=== PATIENT | male | born 1950 ===

== ENCOUNTER 2018-10-26 14:56 | Inpatient (IN) | payer MEDICARE, OTHER ==
[~2018-10-26] VITALS: Ht 177.8 cm; Wt 117.6 kg
[2018-10-26 16:15] VITALS: BP 161/70
[2018-10-26] MEDS ORDERED: mag hydrox/Alum hydrox/simeth 30ml oral suspension PO PRN (17:00)
[2018-10-26] MEDS ORDERED: ondansetron/PF 4mg/2ml inj IV PRN ×2 (17:00→17:10)
[2018-10-26] MEDS ORDERED: magnesium hydroxide 30ml (MOM) UD suspension PO PRN (17:00)
[2018-10-26] MEDS ORDERED: acetaminophen 325mg tablet PO PRN (17:00)
[2018-10-26] MEDS ORDERED: HYDROcodone/acetaminophen 5mg/325mg tablet PO PRN (17:10)
[2018-10-26] MEDS ORDERED: furosemide 40mg/4ml inj IV ONE (17:10)
[2018-10-26] MEDS ORDERED: HYDROcodone/acetaminophen 10/325mg tab PO PRN (17:45)
[2018-10-26] MEDS ORDERED: dextrose ORAL solution 15 GM/59 ML bottle PO PRN ×2 (18:20)
[2018-10-26] MEDS ORDERED: labetalol 100mg tablet PO ONE (18:20)
[2018-10-26] MEDS ORDERED: MESSAGE TO PHARMACY PO ONE (18:20)
[2018-10-26] MEDS ORDERED: glucagon, human recombinant 1mg kit SUBCUT PRN (18:20)
[2018-10-26] MEDS ORDERED: dextrose 50%-water 50ml dispensing syringe IV PRN ×2 (18:20)
[2018-10-26 18:33] LABS: ALBUMIN 2.8 G/DL (3.4-5.0); ANION GAP 11 (8-16); BLOOD UREA NITROGEN 51 MG/DL (7-18); BUN/CREATININE RATIO 12.2 (5.4-32.0); CALCIUM 8.5 MG/DL (8.5-10.1); CHLORIDE 106 MMOL/L (99-107); CREATININE 4.18 MG/DL (0.60-1.10); GLUCOSE 179 MG/DL (70-104); MAGNESIUM 2.2 MG/DL (1.5-2.4); POTASSIUM 3.8 MMOL/L (3.5-5.1); SODIUM 141 MMOL/L (135-145); TOTAL CARBON DIOXIDE 23.9 MMOL/L (24-32); eGFR 14 ML/MIN
[2018-10-26 19:00] VITALS: BP 145/69
[2018-10-26] MEDS: gabapentin 300mg capsule PO SCH (20:56)
[2018-10-26] MEDS: heparin, porcine 5000 units/ml vial SQ SCH (20:57)
[2018-10-26] MEDS: insulin Lispro (HumaLOG) vial - multi-dose SQ SCH (21:04)
[2018-10-26] MEDS: insulin glargine (Lantus) pen - multi-dose SQ SCH (21:14)
[2018-10-26] MEDS ORDERED: LISI-600 PO (21:16)
[2018-10-26] MEDS ORDERED: ATOR40TA PO (21:16)
[2018-10-26] MEDS ORDERED: ISOS60TA4 PO (21:16)
[2018-10-26] MEDS ORDERED: HYDR-4069 PO (21:16)
[2018-10-26] MEDS ORDERED: GABA-532 PO (21:16)
[2018-10-26] MEDS ORDERED: AMLO10TA PO (21:16)
[2018-10-26] MEDS ORDERED: NOVRI SQ (21:16)
[2018-10-26] MEDS ORDERED: ALLO300T2 PO (21:16)
[2018-10-26] MEDS ORDERED: METO-467 PO (21:16)
[2018-10-26] MEDS ORDERED: HYDR-3972 PO (21:16)
[2018-10-26] MEDS ORDERED: TRAM50TA2 PO (21:16)
[2018-10-26] MEDS ORDERED: NIFE60TA2 PO (21:16)
[2018-10-26] MEDS ORDERED: FURO40TA4 PO (21:16)
[2018-10-26] MEDS ORDERED: INSU100V9 SQ (21:16)
[2018-10-26 23:00] VITALS: BP 133/59
[2018-10-27 00:59] LABS: CLARITY,URINE SLIGHTLY CLOUDY (Clear); COLOR,URINE YELLOW (Yellow); GLUCOSE, URINE 100 mg/dl (Neg); KETONES,URINE NEGATIVE (Neg); LEUKOCYTE ESTERASE ,URINE NEGATIVE (Neg); NITRITES, URINE NEGATIVE (Neg); OCCULT BLOOD,URINE LARGE (Neg); PH,URINE 5.5 (4.8-8.0); PROTEIN,URINE 100 mg/dl (Neg); UROBILINOGEN,URINE 0.2 E.U/dL (0.2-1.0)
[2018-10-27 01:04] LABS: UA COLLECTION TYPE FOLEY CATH
[2018-10-27 01:05] LABS: BACTERIA,URINE FEW /HPF (Neg); MUCUS STRANDS FEW /LPF (Neg); RBC,URINE 50-100 /HPF (0-2); SQUAMOUS EPITHELIAL CELL,UR FEW /LPF (FEW); WBC,URINE 0-4 /HPF (0-4)
[2018-10-27 01:09] LABS: TOTAL PROTEIN,URINE RANDOM 85.1 MG/DL
[2018-10-27 03:00] VITALS: BP 148/70
[2018-10-27 05:55] LABS: BASOPHILS # (AUTO) 0.1 X10'3 (0-0.2); BASOPHILS % (AUTO) 0.6 % (0-1); EOSINOPHILS # (AUTO) 0.4 X10'3 (0-0.9); HEMATOCRIT 33.4 % (42.0-52.0); HEMOGLOBIN 11.2 g/dl (14.0-17.9); LYMPHOCYTES # (AUTO) 1.4 X10'3 (1.1-4.8); LYMPHOCYTES % (AUTO) 15.1 % (21-51); MEAN CORPUSCULAR HEMOGLOBIN 31.4 PG (27.0-31.0); MEAN CORPUSCULAR HGB CONC 33.6 % (33.0-36.5); MEAN CORPUSCULAR VOLUME 93.5 FL (78-98); MONOCYTES # (AUTO) 0.8 X10'3 (0-0.9); MONOCYTES % (AUTO) 8.5 % (2-12); NEUTROPHILS # (AUTO) 6.7 X10'3 (1.8-7.7); NEUTROPHILS % (AUTO) 71.8 % (42-75); PLATELET COUNT 214 X10'3 (140-440); RED BLOOD COUNT 3.58 X10'6 (4.70-6.10); WHITE BLOOD COUNT 9.4 X10'3 (4.5-11.0)
[2018-10-27 06:34] LABS: ALANINE AMINOTRANSFERASE 14 U/L (12-78); ALBUMIN 2.4 G/DL (3.4-5.0); ALBUMIN/GLOBULIN RATIO 0.7 (1.1-1.5); ALKALINE PHOSPHATASE 75 IU/L (46-116); ANION GAP 8 (8-16); ASPARTATE AMINO TRANSFERASE 12 U/L (10-37); BILIRUBIN,TOTAL 0.4 MG/DL (0.1-1.0); BLOOD UREA NITROGEN 47 MG/DL (7-18); BUN/CREATININE RATIO 12.3 (5.4-32.0); CHLORIDE 108 MMOL/L (99-107); CREATININE 3.82 MG/DL (0.60-1.10); GLUCOSE 122 MG/DL (70-104); PHOSPHORUS 4.6 MG/DL (2.3-4.5); POTASSIUM 3.5 MMOL/L (3.5-5.1); SODIUM 142 MMOL/L (135-145); TOTAL CARBON DIOXIDE 25.7 MMOL/L (24-32); TOTAL PROTEIN 5.9 G/DL (6.4-8.2); eGFR 16 ML/MIN
[2018-10-27 07:00] VITALS: BP 139/68
[2018-10-27] MEDS: traMADol 50MG tablet PO SCH ×2 (07:56→20:29)
[2018-10-27] MEDS: heparin, porcine 5000 units/ml vial SQ SCH ×2 (07:56→20:30)
[2018-10-27] MEDS: atorvastatin 20mg tablet PO SCH (07:57)
[2018-10-27] MEDS: gabapentin 300mg capsule PO SCH ×5 (07:57→20:29)
[2018-10-27] MEDS ORDERED: furosemide 20 MG/2 ML vial IV SCH (08:00)
[2018-10-27] MEDS ORDERED: allopurinol 300 MG tablet PO SCH (08:00)
[2018-10-27] MEDS: labetalol 100mg tablet PO SCH ×3 (08:00→16:00)
[2018-10-27 08:01] VITALS: BP 141/70
[2018-10-27] MEDS ORDERED: furosemide 40mg/4ml inj IV ONE (10:55)
[2018-10-27] MEDS ORDERED: furosemide 40mg/4ml inj ONE (11:48)
[2018-10-27] MEDS ORDERED: metoprolol tartrate 1mg/ml inj IV PRN (12:40)
[2018-10-27] MEDS ORDERED: regadenoson 0.4mg/5ml syringe IV PRN (12:40)
[2018-10-27] MEDS ORDERED: nitroGLYCERIN 0.4mg SUBLingual tab SL PRN (12:40)
[2018-10-27] MEDS ORDERED: aminophylline 250mg/10ml inj. IV PRN (12:40)
[2018-10-27] MEDS ORDERED: metoprolol tartrate 25mg tablet PO ONE (12:46)
[2018-10-27 17:08] VITALS: BP 148/68
[2018-10-27 19:00] VITALS: BP 148/68
[2018-10-27] MEDS: insulin Lispro (HumaLOG) vial - multi-dose SQ SCH (19:04)
[2018-10-27] MEDS: insulin glargine (Lantus) pen - multi-dose SQ SCH (22:35)
[2018-10-27 23:00] VITALS: BP 145/67
[2018-10-28] VITALS (17 sets, daily range): BP systolic 109–176; BP diastolic 51–83
[2018-10-28 05:51] LABS: BASOPHILS # (AUTO) 0.1 X10'3 (0-0.2); BASOPHILS % (AUTO) 0.7 % (0-1); EOSINOPHILS # (AUTO) 0.5 X10'3 (0-0.9); EOSINOPHILS % (AUTO) 4.9 % (0-6); HEMATOCRIT 33.8 % (42.0-52.0); HEMOGLOBIN 11.4 g/dl (14.0-17.9); LYMPHOCYTES # (AUTO) 1.6 X10'3 (1.1-4.8); LYMPHOCYTES % (AUTO) 16.1 % (21-51); MEAN CORPUSCULAR HEMOGLOBIN 31.4 PG (27.0-31.0); MEAN CORPUSCULAR HGB CONC 33.8 % (33.0-36.5); MEAN CORPUSCULAR VOLUME 92.9 FL (78-98); MEAN PLATELET VOLUME 8.6 FL (7.4-10.4); MONOCYTES # (AUTO) 0.9 X10'3 (0-0.9); NEUTROPHILS # (AUTO) 6.7 X10'3 (1.8-7.7); NEUTROPHILS % (AUTO) 69.3 % (42-75); PLATELET COUNT 217 X10'3 (140-440); RED BLOOD COUNT 3.63 X10'6 (4.70-6.10); RED CELL DISTRIBUTION WIDTH 13.9 % (11.5-14.5); WHITE BLOOD COUNT 9.7 X10'3 (4.5-11.0)
[2018-10-28 06:17] LABS: ALANINE AMINOTRANSFERASE 15 U/L (12-78); ALBUMIN 2.5 G/DL (3.4-5.0); ALBUMIN/GLOBULIN RATIO 0.7 (1.1-1.5); ALKALINE PHOSPHATASE 82 IU/L (46-116); ANION GAP 11 (8-16); ASPARTATE AMINO TRANSFERASE 12 U/L (10-37); BILIRUBIN,TOTAL 0.6 MG/DL (0.1-1.0); BLOOD UREA NITROGEN 37 MG/DL (7-18); BUN/CREATININE RATIO 11.8 (5.4-32.0); CALCIUM 8.4 MG/DL (8.5-10.1); CHLORIDE 106 MMOL/L (99-107); CREATININE 3.13 MG/DL (0.60-1.10); GLUCOSE 108 MG/DL (70-104); MAGNESIUM 1.9 MG/DL (1.5-2.4); PHOSPHORUS 3.8 MG/DL (2.3-4.5); POTASSIUM 3.9 MMOL/L (3.5-5.1); SODIUM 142 MMOL/L (135-145); TOTAL CARBON DIOXIDE 25.1 MMOL/L (24-32); TOTAL PROTEIN 6.2 G/DL (6.4-8.2); TROPONIN I 0.13 NG/ML (0.0-0.05); eGFR 20 ML/MIN
[2018-10-28] MEDS ORDERED: allopurinol 300 MG tablet PO PRN (08:00)
[2018-10-28] MEDS: metoprolol tartrate 25mg tablet PO SCH ×2 (08:00→13:06)
[2018-10-28] MEDS: labetalol 100mg tablet PO SCH ×5 (08:00→23:32)
[2018-10-28] MEDS: traMADol 50MG tablet PO SCH ×2 (08:11→20:46)
[2018-10-28] MEDS: atorvastatin 20mg tablet PO SCH (08:11)
[2018-10-28] MEDS: gabapentin 300mg capsule PO SCH ×3 (08:11→20:45)
[2018-10-28] MEDS: heparin, porcine 5000 units/ml vial SQ SCH ×2 (08:12→20:45)
[2018-10-28] MEDS ORDERED: regadenoson 0.4mg/5ml syringe IV ONE (10:18)
[2018-10-28] MEDS ORDERED: aminophylline inj. 10 ML IV ONE (10:18)
[2018-10-28] MEDS: insulin Lispro (HumaLOG) vial - multi-dose SQ SCH ×2 (12:52→18:52)
[2018-10-28] MEDS: furosemide 40mg tablet PO SCH (15:57)
[2018-10-28] MEDS: insulin glargine (Lantus) pen - multi-dose SQ SCH (20:52)
[2018-10-29 02:56] VITALS: BP 119/49
[2018-10-29 06:09] LABS: BASOPHILS # (AUTO) 0.1 X10'3 (0-0.2); BASOPHILS % (AUTO) 0.8 % (0-1); EOSINOPHILS # (AUTO) 0.5 X10'3 (0-0.9); HEMATOCRIT 30.4 % (42.0-52.0); HEMOGLOBIN 10.4 g/dl (14.0-17.9); LYMPHOCYTES # (AUTO) 1.8 X10'3 (1.1-4.8); LYMPHOCYTES % (AUTO) 19.2 % (21-51); MEAN CORPUSCULAR HEMOGLOBIN 31.8 PG (27.0-31.0); MEAN CORPUSCULAR HGB CONC 34.1 % (33.0-36.5); MEAN CORPUSCULAR VOLUME 93.3 FL (78-98); MEAN PLATELET VOLUME 9.1 FL (7.4-10.4); MONOCYTES % (AUTO) 9.9 % (2-12); NEUTROPHILS # (AUTO) 6.3 X10'3 (1.8-7.7); NEUTROPHILS % (AUTO) 65.1 % (42-75); PLATELET COUNT 203 X10'3 (140-440); RED BLOOD COUNT 3.25 X10'6 (4.70-6.10); RED CELL DISTRIBUTION WIDTH 13.8 % (11.5-14.5); WHITE BLOOD COUNT 9.6 X10'3 (4.5-11.0)
[2018-10-29 06:32] LABS: ALANINE AMINOTRANSFERASE 15 U/L (12-78); ALBUMIN 2.3 G/DL (3.4-5.0); ALBUMIN/GLOBULIN RATIO 0.6 (1.1-1.5); ALKALINE PHOSPHATASE 90 IU/L (46-116); ANION GAP 7 (8-16); ASPARTATE AMINO TRANSFERASE 16 U/L (10-37); BILIRUBIN,TOTAL 0.6 MG/DL (0.1-1.0); BLOOD UREA NITROGEN 37 MG/DL (7-18); BUN/CREATININE RATIO 12.1 (5.4-32.0); CALCIUM 8.4 MG/DL (8.5-10.1); CHLORIDE 105 MMOL/L (99-107); CREATININE 3.06 MG/DL (0.60-1.10); GLUCOSE 121 MG/DL (70-104); MAGNESIUM 1.9 MG/DL (1.5-2.4); PHOSPHORUS 3.9 MG/DL (2.3-4.5); POTASSIUM 4.2 MMOL/L (3.5-5.1); SODIUM 140 MMOL/L (135-145); TOTAL CARBON DIOXIDE 27.9 MMOL/L (24-32); TOTAL PROTEIN 5.9 G/DL (6.4-8.2); eGFR 21 ML/MIN
[2018-10-29 07:00] VITALS: BP 142/64
[2018-10-29] MEDS: traMADol 50MG tablet PO SCH (07:18)
[2018-10-29] MEDS: gabapentin 300mg capsule PO SCH ×2 (07:18→12:51)
[2018-10-29] MEDS: atorvastatin 20mg tablet PO SCH (07:18)
[2018-10-29] MEDS: furosemide 40mg tablet PO SCH (07:18)
[2018-10-29] MEDS: heparin, porcine 5000 units/ml vial SQ SCH (07:19)
[2018-10-29 07:20] VITALS: BP 147/69
[2018-10-29] MEDS: labetalol 100mg tablet PO SCH (07:20)
[2018-10-29] MEDS ORDERED: allopurinol 100mg tablet PO SCH (08:00)
[2018-10-29] MEDS: insulin Lispro (HumaLOG) vial - multi-dose SQ SCH ×2 (09:03→12:53)
[2018-10-29 11:00] VITALS: BP 152/60
[2018-10-29] MEDS ORDERED: LABE100T5 PO (14:12)
[2018-10-29] MEDS ORDERED: ALLO100T25 PO (14:12)
[2018-10-30] MEDS ORDERED: gabapentin 300mg capsule PO SCH (08:00)
== END 2018-10-29 15:25 | disposition home or self-care (01) | DRG 682 ==
LOC: PCU 3S 16:18
PROVIDERS: ADMIT Internal Medicine Critical Care Medicine; ATTEND Internal Medicine Critical Care Medicine
PROC: CT131ZZ Planar Nuclear Medicine Imaging of Kidneys, Ureters and Bladder using Technetium 99m (Tc-99m) (ICD-10-PCS; 2018-10-27)
PROC: 4A02XM4 Measurement of Cardiac Total Activity, External Approach (ICD-10-PCS; principal; 2018-10-28)
PROC: 3E033HZ Introduction of Radioactive Substance into Peripheral Vein, Percutaneous Approach (ICD-10-PCS; 2018-10-28)
DX: N17.9 Acute kidney failure, unspecified (principal); I50.33 Acute on chronic diastolic (congestive) heart failure; I13.2 Hypertensive heart and chronic kidney disease with heart failure and with stage 5 chronic kidney disease, or end stage renal disease; I48.92 Unspecified atrial flutter; N18.5 Chronic kidney disease, stage 5; E11.22 Type 2 diabetes mellitus with diabetic chronic kidney disease; E11.319 Type 2 diabetes mellitus with unspecified diabetic retinopathy without macular edema; E78.5 Hyperlipidemia, unspecified; E11.42 Type 2 diabetes mellitus with diabetic polyneuropathy; E66.9 Obesity, unspecified; R31.9 Hematuria, unspecified; M10.9 Gout, unspecified; I95.9 Hypotension, unspecified; Z60.2 Problems related to living alone; I71.2 Thoracic aortic aneurysm, without rupture; Z89.422 Acquired absence of other left toe(s); Z88.2 Allergy status to sulfonamides; Z88.8 Allergy status to other drugs, medicaments and biological substances; Z79.899 Other long term (current) drug therapy; Z79.4 Long term (current) use of insulin; Z79.01 Long term (current) use of anticoagulants; Z68.37 Body mass index [BMI] 37.0-37.9, adult
CPT/HCPCS: 36415; 76775; 78452; 78708; 80048; 80053; 81001; 82570; 82948; 83605; 83735; 83880; 84100; 84133; 84156; 84300; 84443; 84484; 85025; 87040; 87070; 93017; A9500; A9562; G0378; J0280; J1644; J1815; J1940